=== PATIENT | male | born 1960 | race American Indian/Alaskan Native ===

== ENCOUNTER 2023-03-02 06:49 | Emergency (ER) | payer BC ==
[2023-03-02] MEDS ORDERED: Sodium Chloride 0.9% 1,000 ML IV ONE ×3 (07:06→09:31)
[2023-03-02] MEDS ORDERED: Albuterol/Ipratropium 3.0-0.5 MG/3 ML Neb Soln NEB ONE ×3 (07:07→07:52)
[2023-03-02] MEDS ORDERED: Digoxin 500 MCG/2 ML Amp IVPUSH ONE (07:08)
[2023-03-02] MEDS ORDERED: Hydrocortisone Sodium Succinate 100 MG/2 ML SDV IVPUSH ONE (07:10)
[2023-03-02] MEDS ORDERED: Diltiazem 25 MG/5 ML SDV IVPUSH ONE (07:23)
[2023-03-02] MEDS ORDERED: Norepinephrine Bit/D5W Premix 250 ML ONE (07:45)
[2023-03-02] MEDS ORDERED: Cefepime 2 GM Vial IVPUSH ONE (07:48)
[2023-03-02] MEDS ORDERED: Norepinephrine Bit/D5W Premix 4 MG in Premix Bag 1 BAG IV SCH (07:48)
[2023-03-02] MEDS ORDERED: Levofloxacin/Dextrose 5%-Water 750 MG in Premix Bag 1 BAG IV ONE (07:49)
[2023-03-02] MEDS ORDERED: fentaNYL 100 MCG/2 ML SDV IVPUSH ONE ×2 (07:52→07:53)
[2023-03-02] MEDS ORDERED: Levofloxacin/Dextrose 5%-Water 150 ML IV ONE (07:54)
[2023-03-02] MEDS ORDERED: VANCOmycin 2 GM/400 ML 2 GM in Premix Bag 1 BAG IV ONE (07:56)
[2023-03-02 08:00] LABS: ESTIMATED GFR 35 mL/min (>60)
[2023-03-02] MEDS: Albuterol/Ipratropium 3.0-0.5 MG/3 ML Neb Soln NEB ONE ×2 (08:03→12:24)
[2023-03-02] MEDS ORDERED: Potassium Chloride 20 MEQ in Premix Bag 1 BAG IV ONE (08:12)
[2023-03-02] MEDS ORDERED: Potassium Chloride 100 ML ONE (08:16)
[2023-03-02] MEDS ORDERED: Albumin 25% 100 ML IV ONE (08:46)
[2023-03-02] MEDS: fentaNYL 100 MCG/2 ML SDV IVPUSH PRN ×2 (08:49→09:30)
[2023-03-02] MEDS ORDERED: Iopamidol 755 Mg/ML 100 ML Bottle IV SCH (09:00)
[2023-03-02] MEDS ORDERED: fentaNYL 100 MCG/2 ML SDV IVPUSH PRN (09:08)
[2023-03-02] MEDS ORDERED: metroNIDAZOLE/Normal Saline 500 MG in Premix Bag 1 BAG IV ONE (09:29)
[2023-03-02] MEDS ORDERED: metroNIDAZOLE/Normal Saline 100 ML ONE (09:47)
[2023-03-02] MEDS ORDERED: HYDROmorphone 2 MG/ML SDV IVPUSH ONE (09:56)
== END 2023-03-02 10:23 ==
LOC: FB.ED 06:49
DX: A41.9 Sepsis, unspecified organism (principal); R65.21 Severe sepsis with septic shock; J96.01 Acute respiratory failure with hypoxia; K52.89 Other specified noninfective gastroenteritis and colitis; D70.1 Agranulocytosis secondary to cancer chemotherapy; C79.51 Secondary malignant neoplasm of bone; R50.81 Fever presenting with conditions classified elsewhere; N17.9 Acute kidney failure, unspecified; E87.20 Acidosis, unspecified; E87.6 Hypokalemia; E83.42 Hypomagnesemia; I10 Essential (primary) hypertension; J44.9 Chronic obstructive pulmonary disease, unspecified; Z72.0 Tobacco use
CPT/HCPCS: 36415; 71045; 71275; 74177; 80053; 83605; 83735; 84100; 84484; 85025; 85379; 86140; 87040; 93005; 93010; 94640; 96361; 96365; 96366; 96368; 96375; 96376; 99285; 99291; J0692; J1160; J1170; J1720; J3010; J3370; J3480; J3490; J7030; P9047; Q9967; J7620